=== PATIENT | female | born 1970 | race Two or more races ===

== ENCOUNTER 2023-07-04 07:54 | Inpatient (IN) | payer OTHER ==
[~2023-07-04] VITALS: Ht 180.3 cm; Wt 127.0 kg
[~2023-07-04 07:54] MED LIST: TOPROL XL50 M1 PO
== END 2023-07-06 10:48 | disposition home or self-care (01) | DRG 743 ==
LOC: CIR.AMB 07:54 → OB/GYN 16:37 → CIR.AMB 16:45 → OB/GYN 07-06 10:48
PROVIDERS: ADMIT Obstetrics & Gynecology Gynecologic Oncology; ATTEND Obstetrics & Gynecology Gynecologic Oncology
PROC: 07BC0ZZ Excision of Pelvis Lymphatic, Open Approach (ICD-10-PCS; 2023-07-04)
PROC: 0UT60ZZ Resection of Left Fallopian Tube, Open Approach (ICD-10-PCS; 2023-07-04)
PROC: 0UT10ZZ Resection of Left Ovary, Open Approach (ICD-10-PCS; 2023-07-04)
PROC: 0WBH0ZZ Excision of Retroperitoneum, Open Approach (ICD-10-PCS; 2023-07-04)
PROC: 0DBU0ZZ Excision of Omentum, Open Approach (ICD-10-PCS; 2023-07-04)
PROC: 3E1M38Z Irrigation of Peritoneal Cavity using Irrigating Substance, Percutaneous Approach (ICD-10-PCS; 2023-07-04)
PROC: 0UJD4ZZ Inspection of Uterus and Cervix, Percutaneous Endoscopic Approach (ICD-10-PCS; principal; 2023-07-04 16:45)
DX: D27.1 Benign neoplasm of left ovary (principal); Z20.822 Contact with and (suspected) exposure to COVID-19; Z53.31 Laparoscopic surgical procedure converted to open procedure